=== PATIENT | female | born 1990 | race Caucasian/White ===

== ENCOUNTER 2017-04-16 11:46 | Outpatient (CLI) | payer OTHER ==
--- NOTE | 2017-04-16 17:44 | ULT ---
ULTRASOUND OBSTETRICAL COMPLETE: Date: 04/16/17 HISTORY: 26-year-old female in second trimester of . Evaluate size, dates, and anatomy. FINDINGS: number: [place]. lie: Breech. Maternal cervix: Not visualized. Placenta: posterior. No previa. Amniotic fluid volume: ODALIS 13 cm. heart rate: 140 bpm. The following anatomy is visualized, with no evidence of anomalies: Head, lateral ventricles, cerebellum, nose and lips, spine, upper limbs, lower limbs, four chamber h eart, umbilical cord, cord insertion, stomach, kidneys, and bladder. biometry: Head circumference (HC): 17.1 cm 19w 5d Biparietal diameter (BPD): 4.4 cm 19w 2d Abdominal circumference (AC): 14.0 cm 19w 3d Femur length (FL): 3.0 cm 19w 2d Average ultrasound age (AUA): 19w 2d Estimated date of delivery (SHADY): 09/08/2017 Gestational age by LMP: 19w 2d Estimated weight (EFW): 290 g, +/- 43 g IMPRESSION: 1. Live second trimester intrauterine gestation. 2. Estimated gestational age of 19 weeks, 2 days. 3. Breech lie. 4. No anatomical abnormalities. [email or web address] [] POS: JESSICA
== END 2017-04-16 11:47 | disposition home or self-care (01) ==
LOC: NAV ULT 11:46
PROVIDERS: ATTEND Family Medicine
DX: Z34.02 Encounter for supervision of normal first pregnancy, second trimester (principal); O32.1XX0 Maternal care for breech presentation, not applicable or unspecified; Z3A.19 19 weeks gestation of pregnancy
CPT/HCPCS: 76805

== ENCOUNTER 2018-12-24 09:59 | Outpatient (CLI) | payer OTHER ==
--- NOTE | 2018-12-24 11:50 | ULT ---
COMPLETE OB ULTRASOUND GREATER THAN 14 WEEKS: Date: 12/24/18 HISTORY: Size and dates. FINDINGS: Single, viable intrauterine fetus is noted in cephalic presentation. The placenta is posterior and so mewhat low-lying, but without evidence for placenta previa. heart rate is 146 bpm. Amniotic flu id is within normal limits. Cervical length is within normal limits. Anatomy: Visualized brain, 4 chamber heart, 3 vessel cord, stomach, bladder, kidneys, sp ine, and extremity regions are unremarkable. Biometry: BPD: 6.1 cm --- 24 weeks/5 days HC: 22.5 cm --- 24 weeks/4 days AC: 20.2 cm --- 24 weeks/5 days FL: 4.4 cm --- 24 weeks/4 days IMPRESSION: Single, viable intrauterine fetus at 24 weeks/2 days, with an SHADY of 04/13/2019. Estimated weig ht is 720 gm, at 51st percentile. POS: [facility]
== END 2018-12-24 10:00 | disposition home or self-care (01) ==
LOC: NAV ULT 09:59
PROVIDERS: ATTEND Family Medicine
DX: Z34.82 Encounter for supervision of other normal pregnancy, second trimester (principal); Z3A.24 24 weeks gestation of pregnancy
CPT/HCPCS: 76805

== ENCOUNTER 2019-03-10 18:49 | Emergency (ER) | payer OTHER ==
[2019-03-10 19:50] LABS: Bilirubin Negative (Negative); Blood, Urine Negative (Negative); Clarity Clear (Clear); Glucose, Urine (Dipstick) Negative (Negative); Leukocyte Negative (Negative); Nitrite Negative (Negative); Protein, Urine (Dipstick) Negative (Neg-Trace); Urobilinogen 0.2 mg/dL (Less than 2)
[2019-03-11] MEDS ORDERED: Dextrose 10% in Water 1,000 ML ONE (03:30)
== END 2019-03-10 20:18 | disposition home or self-care (01) ==
LOC: NAV ERS 18:49
DX: O47.03 False labor before 37 completed weeks of gestation, third trimester (principal); O99.343 Other mental disorders complicating pregnancy, third trimester; F32.9 Major depressive disorder, single episode, unspecified; F41.9 Anxiety disorder, unspecified; Z87.891 Personal history of nicotine dependence; Z3A.35 35 weeks gestation of pregnancy
CPT/HCPCS: 81003; 99283

== ENCOUNTER 2019-03-20 18:09 | Emergency (ER) | payer OTHER | END 2019-03-20 19:28 | disposition home or self-care (01) | LOC: NAV ERS 18:09 | DX: O99.89 Other specified diseases and conditions complicating pregnancy, childbirth and the puerperium (principal); H60.92 Unspecified otitis externa, left ear; H65.92 Unspecified nonsuppurative otitis media, left ear; O99.343 Other mental disorders complicating pregnancy, third trimester; F32.9 Major depressive disorder, single episode, unspecified; F41.9 Anxiety disorder, unspecified; Z87.891 Personal history of nicotine dependence; Z3A.37 37 weeks gestation of pregnancy | CPT/HCPCS: 87081; 87430; 99283 ==

== ENCOUNTER 2019-03-28 18:22 | Emergency (ER) | payer OTHER | END 2019-03-28 19:05 | disposition home or self-care (01) | LOC: NAV ERS 18:22 | DX: O99.89 Other specified diseases and conditions complicating pregnancy, childbirth and the puerperium (principal); R10.32 Left lower quadrant pain; R10.31 Right lower quadrant pain; Z87.891 Personal history of nicotine dependence; Z3A.37 37 weeks gestation of pregnancy ==

== ENCOUNTER 2019-09-06 07:33 | Emergency (ER) | payer OTHER, SELFPAY | END 2019-09-06 08:55 | disposition home or self-care (01) | LOC: NAV ERS 07:33 | DX: J30.9 Allergic rhinitis, unspecified (principal); J06.9 Acute upper respiratory infection, unspecified; Z87.891 Personal history of nicotine dependence | CPT/HCPCS: 87081; 87430; 87804; 99283 ==

== ENCOUNTER 2019-09-11 20:22 | Emergency (ER) | payer SELFPAY | END 2019-09-11 21:00 | disposition home or self-care (01) | LOC: NAV ERS 20:22 | DX: J20.9 Acute bronchitis, unspecified (principal); J06.9 Acute upper respiratory infection, unspecified; Z87.891 Personal history of nicotine dependence | CPT/HCPCS: 99283 ==

== ENCOUNTER 2020-02-08 19:29 | Emergency (ER) | payer OTHER, SELFPAY ==
[2020-02-08 20:09] LABS: #Basophils 0.1 thou/uL (0.0-0.2); #Eosinphils 0.5 thou/uL (0.0-0.7); #Lymphocytes 2.5 thou/uL (1.20-3.40); #Monocytes 0.8 thou/uL (0.11-0.59); #Neutrophils 6.2 thou/uL (1.40-6.50); %Basophils 1.3 % (0.0-1.0); %Eosinophils 4.6 % (0.0-10.0); %Monocytes 7.8 % (0.0-10.0); %Neutrophils 61.3 % (42.0-75.0); Hemoglobin 12.2 g/dL (12.0-16.0); Mean Corpuscular HGB CONC 30.9 g/dL (32.0-36.0); Mean Corpuscular Hemoglobin 27.6 pg (27.0-31.0); Mean Corpuscular Volume 89.5 fL (78.0-98.0); Mean Platelet Volume 12.4 fL (7.4-10.4); Platelet Count 263 thou/uL (130-400); Platelet Morphology Comment Appears Adequate; RBC Distribution Width 14.4 % (11.5-14.5); RBC Morphology Normal; Red Blood Cell (RBC) Count 4.43 mill/uL (4.20-5.40); White Blood Cell (WBC) Count 10.1 thou/uL (4.8-10.8)
[2020-02-08 20:20] LABS: ALT (SGPT) 12 U/L (8-55); AST (SGOT) 10 U/L (5-34); Albumin 3.9 g/dL (3.5-5.0); Alkaline Phosphatase 79 U/L (40-110); Anion Gap 15 mmol/L (10-20); BUN (Urea Nitrogen) 14 mg/dL (7.0-18.7); Bilirubin, Total 0.1 mg/dL (0.2-1.2); CK (CPK) 47 U/L (29-168); Calc. Creatinine Clearance 0 mL/min (70-130); Carbon Dioxide 24 mmol/L (22-29); Chloride 103 mmol/L (98-107); Estimated GFR-MDRD 87; Glucose 80 mg/dL (70-105); Magnesium 1.8 mg/dL (1.6-2.6); Potassium 4.2 mmol/L (3.5-5.1); Protein, Total 6.9 g/dL (6.0-8.3); Sodium 138 mmol/L (136-145)
--- NOTE | 2020-02-08 20:30 | RAD ---
EXAM: CHEST ONE VIEW HISTORY: Chest pain COMPARISON: None FINDINGS: The cardiac silhouette and pulmonary vasculature is within normal limits. The lungs are clear. The os seous structures are intact. IMPRESSION: No acute cardiopulmonary process.
[2020-02-10 15:15] LABS: SARS-CoV-2 MS2 Positive; SARS-CoV-2 N Gene Negative; SARS-CoV-2 S Gene Negative; SARS-CoV-2 by NAA Not Detected (NotDetected); SARS-CoV-2 orf1ab Negative
== END 2020-02-08 21:35 | disposition home or self-care (01) ==
LOC: NAV ERS 19:29
DX: R07.89 Other chest pain (principal); R20.2 Paresthesia of skin; F41.9 Anxiety disorder, unspecified; Z20.828 Contact with and (suspected) exposure to other viral communicable diseases; Z87.891 Personal history of nicotine dependence
CPT/HCPCS: 71045; 80053; 82550; 83735; 84484; 85025; 87635; 93005; U0003

== ENCOUNTER 2021-11-14 18:24 | Emergency (ER) | payer OTHER, SELFPAY | END 2021-11-14 19:15 | disposition home or self-care (01) | LOC: NAV ERS 18:24 | DX: M67.823 Other specified disorders of tendon, right elbow (principal); M25.531 Pain in right wrist ==